=== PATIENT | female | born 2000 | race Caucasian/White ===

== ENCOUNTER 2021-10-16 05:54 | Inpatient (IN) | payer BC, OTHER ==
[2021-10-16] MEDS ORDERED: TERBUTALINE 1 MG/ML VIAL SQ PRN (06:25)
[2021-10-16] MEDS ORDERED: CARBOPROST TROMETHAMINE 250 MCG/ML 1 ML AMP IM PRN (06:25)
[2021-10-16] MEDS ORDERED: METHYLERGONOVINE 0.2 MG/ML 1 ML AMP IM PRN (06:25)
[2021-10-16] MEDS ORDERED: LIDOCAINE 0.5% (PF) 5 MG/ML (50 ML SDV) SQ PRN (06:25)
[2021-10-16] MEDS ORDERED: OXYTOCIN 10 UNIT/ML 1 ML VIAL IM PRN (06:25)
[2021-10-16 06:36] LABS: Anisocytosis Slight; Basophils % (A) 0 %; Eosinophils # (A) 0.2 k/uL (0-0.7); Eosinophils % (A) 2 %; HCT 34.1 % (34.0-46.0); HGB 10.8 gm/dL (11.4-16.0); Hypochromasia Marked; Lymphocytes # (A) 2.4 k/uL (1.0-4.8); Lymphocytes % (A) 25 %; MCH 26.4 pg (25.0-35.0); MCHC 31.6 g/dL (31.0-37.0); MCV 83.5 fL (80.0-100.0); Mean Platelet Volume 9.1; Monocytes # (A) 0.4 k/uL (0-1.0); Monocytes % (A) 4 %; Neutrophils # (A) 6.3 k/uL (1.3-7.7); Neutrophils % (A) 68 %; Platelet Count 280 k/uL (150-450); RBC 4.09 m/uL (3.80-5.40); RDW 16.4 % (11.5-15.5); WBC 9.3 k/uL (4.0-11.0)
[2021-10-16] MEDS: LACTATED RINGERS 1,000 ML IV SCH ×4 (06:40→16:56)
[2021-10-16] MEDS ORDERED: OXYTOCIN 30 UNITS/500 ML NS 30 UNIT in SALINE 1 500ML.BAG IV SCH ×2 (06:45→20:30)
[2021-10-16] MEDS ORDERED: ROPIVACAINE 5MG/ML 20ML VIAL ONE (10:24)
[2021-10-16] MEDS ORDERED: SODIUM CHLORIDE 0.9% 100 ML BAG ONE (10:24)
[2021-10-16] MEDS ORDERED: fentaNYL (PF) 50 MCG/ML 5 ML AMP ONE (10:24)
--- NOTE | 2021-10-16 16:44 | P.HPOB ---
History of Present Illness H&P Date: 10/16/21 Chief Complaint: IUP @ 39 6/7 weeks This is a 21 yo at 39 6/7 weeks EDC of 10/17 based on LMP. Patient has been receiving routine care with myself which has been essentially uncomplicated. Patient does decline all vaccinations at this time. Patient made the abdomen cleared during care. Patient does note good movement she denies contractions vaginal bleeding or loss of fluid. On bloodwork this patient is a blood type of A+, rubella status immune, RPR is nonreactive, hepatitis B surface antigen is negative, HIV is negative, she did pass her one-hour Glucola with a result of 1:15, group beta strep cultures are negative on 09/19. Review of Systems Constitutional: Denies chills, Denies fatigue, Denies fever Ears, nose, mouth and throat: Denies headache Cardiovascular: Reports leg edema Respiratory: Denies dyspnea Gastrointestinal: Denies nausea, Denies vomiting Genitourinary: Reports Past Medical History Past Medical History: No Reported History History of Any Multi-Drug Resistant Organisms: None Reported Past Surgical History: No Surgical Hx Reported Past Anesthesia/Blood Transfusion Reactions: No Reported Reaction Past Psychological History: No Psychological Hx Reported Smoking Status: Never smoker Medications and Allergies Home Medications Medication Instructions Recorded Confirmed Type Vit No.179/Iron/Folic 1 each PO 10/16/21 History [ Tablet] Allergies Allergy/AdvReac Type Severity Reaction Status Date / Time No Known Allergies Allergy Verified 10/16/21 06:24 Exam Osteopathic Statement: *. No significant issues noted on an osteopathic structural exam other than those noted in the History and Physical/Consult. 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 Results Result Diagrams: 10/16/21 06:20 Abnormal Lab Results - Last 24 Hours (Table) 10/16/21 Range/Units 06:20 Hgb 10.8 L (11.4-16.0) gm/dL RDW 16.4 H (11.5-15.5) % Assessment and Plan (1) Term Current Visit: Yes Status: Acute Code(s): Z34.90 - ENCNTR FOR SUPRVSN OF NORMAL , UNSP, UNSP TRIMESTER SNOMED Code(s): 24010129 Plan: 21-year-old 1 para 0 at 39-6/7 weeks presents for elective induction of labor. Patient is admitted to labor and delivery and Pitocin induction of labor is begun. Amniotomy is performed and clear fluid was obtained. Options for analgesia during labor discussed including Stadol and epidural. Patient does desire epidural once uncomfortable. We will monitor closely.
[2021-10-16] MEDS ORDERED: CITRIC ACID-SODIUM CITRATE 15 ML CUP PO ONE (19:13)
[2021-10-16] MEDS ORDERED: NALBUPHINE 10 MG/ML (1 ML AMP) ONE (19:36)
[2021-10-16] MEDS ORDERED: OXYTOCIN 30 UNITS/500 ML NS BAG IV ONE (19:36)
[2021-10-16] MEDS ORDERED: ONDANSETRON 4 MG/2 ML VIAL ONE (19:36)
[2021-10-16] MEDS ORDERED: MORPHINE SULFATE (PF) 0.3 MG/0.3 ML SYR ONE (19:36)
[2021-10-16] MEDS ORDERED: NALOXONE 0.4 MG/ML 1 ML VIAL IV PRN (20:26)
[2021-10-16] MEDS ORDERED: diphenhydrAMINE 50 MG CAP PO PRN (20:26)
[2021-10-16] MEDS ORDERED: diphenhydrAMINE 25 MG CAP PO PRN (20:26)
[2021-10-16] MEDS ORDERED: diphenhydrAMINE 50 MG/ML 1 ML VIAL IVP PRN ×2 (20:26)
[2021-10-16] MEDS ORDERED: ZOLPIDEM 5 MG TAB PO PRN (20:26)
[2021-10-16] MEDS ORDERED: ONDANSETRON 4 MG/2 ML VIAL IVP PRN (20:26)
[2021-10-16] MEDS ORDERED: METOCLOPRAMIDE 5 MG/ML 2 ML VIAL IVP PRN (20:26)
[2021-10-16] MEDS ORDERED: SIMETHICONE 80 MG CHEWABLE PO PRN (20:26)
--- NOTE | 2021-10-16 20:26 | P.OP ---
Date of Procedure: 10/16/21 Preoperative Diagnosis: IUP @ 39 6/7 weeks, NRFHTs Postoperative Diagnosis: same plus brow presentation Anesthesia: spinal Surgeon: Esperanza Washington [employer] F[employer] Instructor #1: Kwaku Radford Estimated Blood Loss (ml): 260 IV fluids (ml): 800 Urine output (ml): 50 Pathology: other (Placenta) Condition: stable Disposition: observation Indications for Procedure: 21-year-old 1 para 0 at 39-6/7 weeks that presented to labor and delivery today for induction of labor. Patient made slow progress through labor eventually stalling at 5-6 for multiple hours. In addition nonreassuring heart tones were noted with deep variables appreciated. Pitocin was turned off and patient and family was counseled on need for primary secondary to nonreassuring heart tones. Patient stated understanding as we had been discussing heart tones throughout the day. Patient wished to proceed with primary . All questions were answered. Risks were reviewed. Operative Findings: viable male infant delivered at 195, weight of 6 lbs. 11 oz., Apgars of 8 and 9 at one and 5 minutes respectively, brow presentation is appreciated Description of Procedure: Patient is taken back to the operating suite where epidural catheter was removed without difficulty by the anesthesia department, spinal was then preformed by the anesthesia department. Patient was then prepped and draped in the normal sterile fashion in the dorsal supine position. A Pfannenstiel skin incision was made with the scalpel and carried through the underlying layer of fascia. Fascia was then incised in the midline and the incision was extended laterally. The superior aspect of the fascial incision was then grasped tiara clamps, elevated and underlying rectus muscles dissected off sharply. The inferior aspect of the fascial incision was then grasped tiara clamps, elevated and underlying rectus muscles dissected off sharply. The rectus muscles were the midline the peritoneum was identified and entered. The bladder blade was then inserted into the pelvis. The vesicouterine peritoneum was identified and the bladder flap was created using sharp and blunt dissection. Hysterotomy incision was made with the scalpel and the infant was encountered in a brow presentation multiple loops of cord were noted in front of the face was delivered in the usual fashion the umbo cord was doubly clamped and cut and the was handed to the awaiting RN, spontaneous cry was noted at . The placenta was then delivered manually with remnants of membrane cleared with a textile science technician on any sponge. The uterus was delivered from the abdomen. The uterine incision was closed with 0 Vicryl in a running locked fashion from one lateral edge the other. A second inverting suture was performed. Hemostasis was appreciated. The uterus was then returned to the abdomen. The gutters were cleared of all clots and debris. The uterine incision was inspected found to be hemostatic. The peritoneum was then loosely reapproximated. The rectus muscles were inspected found to be hemostatic. The fascia was then closed with 0 Vicryl in a running fashion from one lateral edge the other. The subcu tissue was irrigated found to be hemostatic and closed with 3-0 Vicryl in a running fashion. The skin was then closed with 4-0 Vicryl in a subcuticular fashion. Steri-Strips and sterile dressings were applied. All counts are correct 2. Patient and infant tolerated procedure well.
[2021-10-16] MEDS: ACETAMINOPHEN IV (For NPO) 1,000 MG in EMPTY BAG 1 BAG IVPB SCH (23:36)
[2021-10-17] MEDS: LACTATED RINGERS 1,000 ML IV SCH ×2 (01:13→21:54)
[2021-10-17] MEDS: IBUPROFEN IV 800 MG in SODIUM CHLORIDE 0.9% 250 ML IV SCH ×2 (02:56→07:37)
[2021-10-17] MEDS: IBUPROFEN 600 MG TAB PO SCH ×4 (03:00→21:48)
--- NOTE | 2021-10-17 07:20 | P.PN ---
Progress Note - Text 10/17/21 648am 21-year-old female status post with spinal Duramorph. Patient seen and evaluated, she has a VAS of 1 with no complains of nausea vomiting. Patient does have pruritus which should subside.
[2021-10-17] MEDS: ACETAMINOPHEN IV (For NPO) 1,000 MG in EMPTY BAG 1 BAG IVPB SCH (07:37)
--- NOTE | 2021-10-17 08:07 | P.PNOBGPC ---
Subjective - Subjective Principal diagnosis: Postop day 1, status post primary Interval history: Patient is doing well postoperatively. She is ambulating and voiding without difficulty. She is tolerating clear liquids without nausea or vomiting. She states her pain is well-controlled. Her lochia is minimal. Patient reports: Reports appetite normal, Reports voiding normally, Reports pain well controlled, Reports ambulating normally : doing well Objective - Vital Signs Latest vital signs: Vital Signs Temp Pulse Resp BP Pulse Ox 10/17/21 04:00 98.2 F 96 17 134/71 97 10/17/21 01:33 99.2 F 96 14 116/73 95 10/17/21 00:00 15 10/16/21 22:15 98.4 F 93 15 122/64 99 10/16/21 21:45 104 H 16 117/53 10/16/21 21:15 98.7 F 83 16 108/56 96 10/16/21 21:00 78 16 101/57 98 10/16/21 20:45 86 16 104/57 99 10/16/21 20:30 68 16 97/53 96 10/16/21 20:15 98.7 F 98 16 133/59 95 Intake and Output 10/16/21 10/17/21 10/17/21 22:59 06:59 14:59 Intake Total 800 480 Output Total 688 300 Balance 112 180 Intake: Oral 800 480 Output: Urine 300 Uretheral (Dutta) 300 Estimated Blood Loss 260 Output, Quantitative 428 Blood Loss - Exam Extremities: Present: edema Abdomen: Present: normal appearance Incision: Present: normal, dry, intact Uterus: Present: normal Assessment and Plan (1) Term Current Visit: Yes Status: Acute Code(s): Z34.90 - ENCNTR FOR SUPRVSN OF NORMAL , UNSP, UNSP TRIMESTER SNOMED Code(s): 20971703 (2) S/P section Current Visit: Yes Status: Acute Code(s): Z98.891 - HISTORY OF UTERINE SCAR FROM PREVIOUS SURGERY SNOMED Code(s): 935542496 (3) Brow presentation of fetus Current Visit: Yes Status: Acute Code(s): O32.3XX0 - MATERNAL CARE FOR FACE, BROW AND CHIN PRESENTATION, UNSP SNOMED Code(s): 0391244 (4) Non-reassuring electronic monitoring tracing Current Visit: Yes Status: Acute Code(s): O36.8390 - MATERN CARE FOR ABNLT FETL HRT RATE OR RHYM, UNSP TRI, UNSP SNOMED Code(s): 650482735 Plan: 21-year-old 1 now para 1 status post primary for nonreassuring heart tones. Patient is doing well postoperatively. Encouraged increased ambulation. We'll discontinue dressing this evening and anticipate discharge home tomorrow. Continue routine care
[2021-10-17] MEDS: SENNOSIDES-DOCUSATE SODIUM 1 EACH TAB PO SCH ×2 (08:31→20:40)
[2021-10-17] MEDS: ACETAMINOPHEN TAB 500 MG TAB PO SCH ×2 (08:32→14:11)
[2021-10-17] MEDS: PRENATAL VIT-IRON-FOLIC ACID 1 EACH TABLET PO SCH (08:33)
[2021-10-17 09:12] LABS: Anisocytosis Slight; Basophils % (A) 0 %; Eosinophils # (A) 0.1 k/uL (0-0.7); Eosinophils % (A) 1 %; HCT 32.7 % (34.0-46.0); HGB 10.6 gm/dL (11.4-16.0); Hypochromasia Marked; Lymphocytes # (A) 2.1 k/uL (1.0-4.8); Lymphocytes % (A) 17 %; MCH 26.8 pg (25.0-35.0); MCHC 32.4 g/dL (31.0-37.0); MCV 82.6 fL (80.0-100.0); Mean Platelet Volume 9.5; Monocytes # (A) 0.3 k/uL (0-1.0); Monocytes % (A) 2 %; Neutrophils # (A) 9.5 k/uL (1.3-7.7); Neutrophils % (A) 79 %; Platelet Count 219 k/uL (150-450); RBC 3.96 m/uL (3.80-5.40); RDW 16.8 % (11.5-15.5); WBC 12.1 k/uL (4.0-11.0)
[2021-10-18] MEDS: ACETAMINOPHEN TAB 500 MG TAB PO SCH ×3 (00:53→12:54)
[2021-10-18] MEDS: IBUPROFEN 600 MG TAB PO SCH ×2 (01:17→13:27)
[2021-10-18] MEDS: SENNOSIDES-DOCUSATE SODIUM 1 EACH TAB PO SCH (08:19)
[2021-10-18 09:33] VITALS: BP 121/75; PULSE 91; RESP 18; TEMP 97.9
[2021-10-18] MEDS: PRENATAL VIT-IRON-FOLIC ACID 1 EACH TABLET PO SCH (09:34)
--- NOTE | 2021-10-18 10:17 | P.DS ---
Providers Date of admission: 10/16/21 05:54 Expected date of discharge: 10/18/21 Attending physician: Esperanza Washington Primary care physician: Stated None - Discharge Diagnosis(es) (1) Brow presentation of fetus Current Visit: Yes Status: Acute (2) Non-reassuring electronic monitoring tracing Current Visit: Yes Status: Acute (3) S/P section Current Visit: Yes Status: Acute (4) Term Current Visit: Yes Status: Acute Hospital Course: This is a 21-year-old 1 now para 1 woman who presented at 39-6/7 weeks' gestation for induction of labor. The patient had a routine Pitocin induction of labor with artificial rupture of membranes. She had arrest of descent and dilatation in the first stage of labor as well as nonreassuring heart tones. She therefore underwent primary low transverse section. Findings at the time of surgery were significant for a brow presentation, male infant weighing 6 lbs. 11 oz. with Apgars of 8 at 1 minute and 9 at 5 minutes. Please see the operative report for details. The patient's postoperative course was unremarkable. By postoperative day #1 she was ambulating and voiding without difficulty, her pain was well-controlled and her vital signs were stable. Lab work was within normal limits. Her postoperative day #2 she continued to do well. Her incision was well healing, she was breast-feeding successfully and her pain was well-controlled with oral pain medications. She was therefore discharged home with routine instructions for postoperative care and follow-up. Patient Condition at Discharge: Good Plan - Discharge Summary New Discharge Prescriptions: No Action Vit No.179/Iron/Folic [ Tablet] 1 each PO Discharge Medication List Vit No.179/Iron/Folic [ Tablet] 1 each PO 10/16/21 [History] Follow up Appointment(s)/Referral(s): Esperanza Washington DO [Doctor of Osteopathic Medicine] - 2 Weeks Activity/Diet/Wound Care/Special Instructions: Follow-up in 2 weeks after surgery in the office. May use wmar-anj-gyevhig ibuprofen 600 mg every 6 hours and or Tylenol extra strength every 6-8 hours as needed for pain. Call the office with any concerning signs or symptoms inclu ding fever greater than 100.5, severe abdominal pain, heavy vaginal bleeding, signs of wound infection, increased swelling or redness of the lower extremities, signs of depression. No driving for 2 weeks after surgery. No heavy lifting or vigorous activity until reevaluated in the office. No intercourse for 6 weeks after delivery. Discharge Disposition: HOME SELF-CARE
== END 2021-10-18 13:02 | disposition home or self-care (01) | DRG 788 ==
LOC: 4FBP 05:54
PROVIDERS: ADMIT Obstetrics & Gynecology Obstetrics; ATTEND Obstetrics & Gynecology Obstetrics
PROC: 3E033VJ Introduction of Other Hormone into Peripheral Vein, Percutaneous Approach (ICD-10-PCS; principal; 2021-10-16 19:30)
PROC: 10D00Z1 Extraction of Products of Conception, Low, Open Approach (ICD-10-PCS; principal; 2021-10-16 19:30)
PROC: 10907ZC Drainage of Amniotic Fluid, Therapeutic from Products of Conception, Via Natural or Artificial Opening (ICD-10-PCS; principal; 2021-10-16 19:30)
DX: O32.3XX0 Maternal care for face, brow and chin presentation, not applicable or unspecified (principal); O62.1 Secondary uterine inertia; O76 Abnormality in fetal heart rate and rhythm complicating labor and delivery; L29.9 Pruritus, unspecified; Z37.0 Single live birth; Z28.310 Unvaccinated for COVID-19
CPT/HCPCS: 85025; 86850; 86900; 86901

== ENCOUNTER 2024-07-30 19:29 | Outpatient (CLI) | payer BC, OTHER ==
[2024-07-30] MEDS ORDERED: LACTATED RINGERS 1,000 ML IV ONE (19:41)
[2024-07-30 19:56] LABS: Glucose,Whole Blood 100 mg/dL (70-110)
[2024-07-30 20:24] LABS: Appearance,Urine Cloudy (Clear); Bacteria,Urine Many /hpf; Basophils # (A) 0.03 10*3/uL (0.00-0.10); Basophils % (A) 0.3 %; Bilirubin,Urine Negative (Negative); Blood,Urine Negative (Negative); Color,Urine Colorless; Eosinophils # (A) 0.07 10*3/uL (0.04-0.35); Eosinophils % (A) 0.7 %; Glucose,Urine (UA) Negative (Negative); HCT 37.3 % (37.2-46.3); HGB 12.3 g/dL (12.0-15.0); Ketones,Urine Negative (Negative); Leukocyte Esterase,Urine Small (Negative); Lymphocytes # (A) 2.73 10*3/uL (0.90-5.00); Lymphocytes % (A) 27.1 %; MCH 28.7 pg (27.0-32.0); MCV 87.1 fL (80.0-97.0); Mean Platelet Volume 10.4 fL (9.5-12.2); Monocytes # (A) 0.44 10*3/uL (0.20-1.00); Monocytes % (A) 4.4 %; Neutrophils # (A) 6.76 10*3/uL (1.80-7.70); Neutrophils % (A) 67.1 %; Nitrite,Urine Negative (Negative); PH, Urine 6.5 (5.0-8.0); Platelet Count 276 10*3/uL (140-440); Protein,Urine Negative (Negative); RBC 4.28 10*6/uL (4.10-5.20); RBC,Urine 2 /hpf (0-5); RDW 13.3 % (11.5-14.5); Specific Gravity,Urine 1.003 (1.001-1.035); Squamous Epithelial Cell,Urine 2 /hpf (0-4); Urobilinogen,Urine <2.0 mg/dL (<2.0); WBC 10.07 10*3/uL (4.50-10.00); WBC,Urine 8 /hpf (0-5)
[2024-07-30 21:11] LABS: ALT 11 U/L (4-34); AST 19 U/L (14-36); African American GFR (CKD) >90 (>60 ml/min/1.73 sqM); Albumin 3.3 g/dL (3.5-5.0); Alkaline Phosphatase 78 U/L (38-126); Anion Gap 9 mmol/L; Blood Urea Nitrogen 9 mg/dL (7-17); Calcium 9.1 mg/dL (8.4-10.2); Carbon Dioxide 21 mmol/L (22-30); Chloride 106 mmol/L (98-107); Glucose 90 mg/dL (74-99); Non-African American GFR(CKD) >90 (>60 ml/min/1.73 sqM); Potassium 3.8 mmol/L (3.5-5.1); Sodium 136 mmol/L (137-145); Total Bilirubin 0.5 mg/dL (0.2-1.3); Total Protein 6.1 g/dL (6.3-8.2)
[2024-07-31 05:24] VITALS: BP 115/68; PULSE 83; RESP 16; TEMP 98
--- NOTE | 2024-09-07 09:29 | P.MSEPDOC ---
Presenting Problems - Arrival Data Date of Arrival on Unit: 07/31/24 Time of Arrival on Unit: 19:30 Mode of Transport: Wheelchair - Complaint OB-Reason for Admission/Chief Complaint: Syncope/Fainting Spell Comment: Patient presents to triage following 2 back to back syncopal episodes at 1850 and 1900. Patient states nobody was with her when they occured. Medical History - Information : 2 Para: 1 Term: 1 : 0 Abortions: Spontaneous or Elective: 0 Number of Living Children: 1 - Gestational Age Gestational Age by TIM (wks/days): 33 Weeks and 5 Days Review of Systems - Review of Systems Constitutional: No problems Breast: No problems ENT: No problems Cardiovascular: No problems Respiratory: No problems Gastrointestinal: No problems Genitourinary: No problems Musculoskeletal: No problems Neurological: No problems Skin: No problems Vital Signs - Temperature Temperature: 98.0 F Temperature Source: Oral - Pulse Right Brachial Pulse Rate: 83 Pulse Assessment Method: Automatic Cuff - Respirations Respiratory Rate: 16 Oxygen Delivery Method: Room Air O2 Sat by Pulse Oximetry: 98 - Blood Pressure Right Arm Blood Pressure: 115/68 Blood Pressure Mean: 83 Blood Pressure Source: Automatic Cuff Medical Screen Scoring - Cervical Exam Membranes: Intact - Uterine Contractions Resting: Soft to palpation - Assessment - Baby A Baseline FHR: 125 Heart Rate - NICHD Category: Category I (Normal) NST: Reactive Physician Notification - Physician Notified Physician Notified Date: 07/31/24 Physician Notified Time: 19:42 Physician: Esperanza Washington New Order Received: Yes - Notification Comment Comment: 1941- Dr. Washington on unit vitals and tracing reviewed. Orders received for CBC CMP and U/A. RN to keep pulseoximeter in place. 2129- Dr. Washington aware of labs and is currently on the family unit. Dr. Washington is discharging patient with orders to eat more protein, sodium and hydrate. Care provider would like patietn to rest tomorrow and stay home from work. Maternal Triage Index - Stat/Priority 1 Stat Priority 1: No - Urgent/Priority 2 Urgent Priority 2: No - Prompt/Priority 3 Prompt Priority 3: No - Non-Urgent/Priority 4 Non-Urgent Priority 4: Yes Criteria Met for Priority 4: syncope episode Disposition - Disposition OB Disposition: Discharge to home Discharge Date: 07/30/24 Discharge Time: 21:40 I agree with the RN Medical Screening Exam: Yes Case reviewed; plan agreed upon as documented in EMR&OBIX.: Yes Diagnosis: RELATED CONDITIONS, UNSPECIFIED, THIRD TRIMESTER
== END 2024-07-30 21:40 ==
LOC: FBPOP 19:29
PROVIDERS: ATTEND Obstetrics & Gynecology Obstetrics
DX: O26.893 Other specified pregnancy related conditions, third trimester (principal); R55 Syncope and collapse; Z3A.33 33 weeks gestation of pregnancy
CPT/HCPCS: 36415; 59025; 80053; 81001; 85025; 96360; 99214

== ENCOUNTER 2024-09-10 13:16 | Outpatient (CLI) | payer BC, OTHER ==
[2024-09-10 14:27] LABS: Appearance,Urine Clear (Clear); Bacteria,Urine Occasional /hpf; Bilirubin,Urine Negative (Negative); Blood,Urine Negative (Negative); Budding Yeast,Urine Occasional /hpf; Color,Urine Colorless; Glucose,Urine (UA) Negative (Negative); Ketones,Urine Negative (Negative); Leukocyte Esterase,Urine Moderate (Negative); Mucus,Urine Rare /hpf; Nitrite,Urine Negative (Negative); PH, Urine 6.5 (5.0-8.0); Protein,Urine Negative (Negative); RBC,Urine 1 /hpf (0-5); Squamous Epithelial Cell,Urine <1 /hpf (0-4); Urobilinogen,Urine <2.0 mg/dL (<2.0); WBC,Urine 8 /hpf (0-5)
[2024-09-10 14:51] VITALS: BP 122/66; PULSE 103; RESP 16; TEMP 97.7
--- NOTE | 2024-09-23 11:38 | P.MSEPDOC ---
Presenting Problems - Arrival Data Date of Arrival on Unit: 09/10/24 Time of Arrival on Unit: 13:16 Mode of Transport: Ambulatory - Complaint OB-Reason for Admission/Chief Complaint: Pain Comment: contx vs UTI Medical History - Information : 2 Para: 1 Number of Living Children: 1 - Gestational Age Gestational Age by TIM (wks/days): 39 Weeks and 4 Days - History Complications: Prior Review of Systems - Review of Systems Constitutional: No problems Breast: No problems ENT: No problems Cardiovascular: No problems Respiratory: No problems Gastrointestinal: No problems Genitourinary: Urgency, Increased frequency Musculoskeletal: No problems Neurological: No problems Skin: No problems Vital Signs - Temperature Temperature: 97.7 F Temperature Source: Temporal Artery Scan - Pulse Right Sitting Brachial Pulse Rate: 103 Pulse Assessment Method: Automatic Cuff - Respirations Respiratory Rate: 16 Oxygen Delivery Method: Room Air O2 Sat by Pulse Oximetry: 98 - Blood Pressure Right Arm Sitting Blood Pressure: 122/66 Blood Pressure Mean: 84 Blood Pressure Source: Automatic Cuff Medical Screen Scoring - Cervical Exam Dilation (cm): 1 Effacement (%): 0 Membranes: Intact - Uterine Contractions Frequency From (mins): 1 Frequency To (mins): 1 Duration From (seconds): 10 Duration To (seconds): 20 Intensity: Mild Resting: Soft to palpation - Assessment - Baby A Baseline FHR: 135 Heart Rate - NICHD Category: Category I (Normal) NST: Reactive Physician Notification - Physician Notified Physician Notified Date: 09/10/24 Physician Notified Time: 13:45 Physician: Rip Barnhart Order Received: Yes (ua/ dc if no cervical change after 1 hour) Maternal Triage Index - Maternal Triage Index Presenting for scheduled procedure w/no complaint: No - Stat/Priority 1 Stat Priority 1: No - Urgent/Priority 2 Urgent Priority 2: No - Prompt/Priority 3 Prompt Priority 3: No - Non-Urgent/Priority 4 Non-Urgent Priority 4: Yes Criteria Met for Priority 4: pelvic pain, urinary symptoms Disposition - Disposition OB Disposition: Discharge to home Discharge Date: 09/10/24 Discharge Time: 14:36 I agree with the RN Medical Screening Exam: Yes Physician's MSE Comment: I have neither seen nor examined the patient. Case reviewed; plan agreed upon as documented in EMR&OBIX.: Yes Diagnosis: RELATED CONDITIONS, UNSPECIFIED, THIRD TRIMESTER
== END 2024-09-10 14:36 | disposition home or self-care (01) ==
LOC: FBPOP 13:16
PROVIDERS: ATTEND Obstetrics & Gynecology
DX: O26.893 Other specified pregnancy related conditions, third trimester (principal); R52 Pain, unspecified; Z3A.39 39 weeks gestation of pregnancy
CPT/HCPCS: 59025; 81001; 99213